=== PATIENT | female | born 1950 | race Caucasian/White ===

== ENCOUNTER 2022-08-08 12:49 | Outpatient (CLI) | payer MEDICARE, BC, SELFPAY ==
--- NOTE | 2022-08-08 13:00 | MR_ITS ---
[facility] [address] [facility] [address] Phone:?[phone] Fax:?[phone] Referring Physician Information: Tanmay Greene M.D. [address] [facility] [address] [address] Phone:?[phone] Fax:?[phone] Patient:Neeru Jean D.O.B:?1950 Sex:?Female Phone:?[phone] [facility] MRN:?[id number] Exam Date:?08/08/2022 ? EXAM: MR CERVICAL SPINE WITHOUT CONTRAST 1.5T CLINICAL INFORMATION: Neck and arm pain. CORRELATIVE IMAGES: Cervical MRI 07/17/2020. TECHNICAL INFORMATION: T1, T2 GRE, T2 FSE and STIR sagittal thin sections with T2 GRE and FSE axial sections at selected levels. Motion artifact on T2 GRE. CONTRAST:?None. SEDATION: None. INTERPRETATION:?Spinal Cord: No spinal cord signal abnormality. No Chiari malformation. Bony Structure and Alignment: Lordotic alignment of cervical spine. Osseous and paraspinous structures: Bone marrow signal is unremarkable. Paraspinal soft tissues are unremarkable. Vertebral artery flow voids are present. Facet Joints: Hypertrophic ankylosis left C4-5 facet joint. Marked facet degeneration right C2-3, left C3-4, right C5-6 and left C7-T1. Milder facet arthrosis other levels. Disc Degeneration/Operative changes: Upper thoracic spondylosis without central or foraminal stenosis. C7-T1, trace anterolisthesis without central or foraminal stenosis. C6-7, moderate to marked vertical narrowing with mild bulging, central stenosis, no cord impingement. Severe right and [id number] left chronic foraminal stenosis and C7 impingement. C5-6, trace retrolisthesis with approximately 3 mm AP left posterolateral to foraminal protrusion and uncinate spur, mild to moderate leftward central stenosis and left ventral cord contouring without compression. Severe left and moderate right chronic foraminal stenosis with left C6 impingement. C4-5 trace anterolisthesis with facet hypertrophy and no stenosis. C3-4, trace anterolisthesis and bulge without central or right foraminal compromise. Moderate to marked chronic left foraminal stenosis due to facet hypertrophy with C4 impingement. C3-4 disc morphology is normal. Central canal and foramina. No significant atlantoaxial or atlanto-occipital pathology. CONCLUSION: Cervical spondylosis with these findings: 1. Mild to moderate C5-6 central stenosis eccentric to the left with mild cord impingement. 2. Moderate C6-7 disc degeneration without cord impingement. 3. Chronic foraminal stenosis, notably right greater than left C6-7, left greater than right C5-6 and left C3-4 with nerve root impingement. 4. Multilevel facet degeneration with C4-5 facet ankylosis, no inflammatory facet arthropathy. Note: No substantial change from prior study. RSP Electronically signed on 08/11/2022 1:50:00 PM by Larry Mtz M.D.
== END 2022-08-08 12:50 | disposition home or self-care (01) ==
LOC: MRI 12:51
PROVIDERS: PCP Family Medicine; Visit Provider Specialist
DX: M54.2 Cervicalgia (principal); M48.02 Spinal stenosis, cervical region; M50.123 Cervical disc disorder at C6-C7 level with radiculopathy
CPT/HCPCS: 72141

== ENCOUNTER 2023-07-10 13:00 | Outpatient (CLI) | payer MEDICARE, BC, SELFPAY ==
--- NOTE | 2023-07-10 13:00 | CRLHL7_ITS ---
For Patients: As a result of the Century Cures Act, medical imaging exams and procedure reports are released immediately into your electronic medical record. You may view this report before your referring provider. If you have questions, please contact your health care provider. INDICATION: Cervical stenosis. COMPARISON: None. TECHNIQUE: Noncontrast CT cervical spine. FINDINGS: Normal vertebral body facet alignment. No fractures. No vertebral body loss of height. No spondylolisthesis. Compared to previous radiograph, stable mature postoperative changes of anterior discectomy and fusion C5-C7. Hardware appears well seated. Cervical spondylosis with multilevel disc degeneration facet arthropathy. Degenerative fusion across the left C4-5 facet joint. C1-2: No spinal canal narrowing. C1-2: No spinal canal narrowing. C2-3: No spinal canal or neural foraminal narrowing. C3-4: No narrowing of spinal canal. Uncovertebral facet joint hypertrophy results in moderate severe left and mild right neural foraminal narrowing. Potential impingement of the left C4 nerve root. C4-5: Disc generation. Broad-based disc osteophyte complex. Mild narrowing of the left neural foramen. No narrowing of the right neural foramen. C5-6: Postoperative changes. Uncovertebral joint hypertrophy results in moderate narrowing of the left neural foramen. No narrowing of the right neural foramen. Potential impingement of the left C6 nerve root. C6-7: Disc degeneration. Broad-based disc osteophyte complex. Moderate narrowing of bilateral foramina. C7-T1: No spinal canal neural foraminal narrowing. Lung apices are clear. IMPRESSION: 1. Normal alignment. No fractures. 2. Stable postoperative changes C5-7. Hardware appears well-seated. 3. Cervical spondylosis. 4. At C3-4, moderate severe left and mild right neural foraminal narrowing. Potential impingement of the left C4 nerve root. 5. At C5-6, moderate narrowing of the left neuroforamen. Potential impingement left C6 nerve root 6. At C6-7, moderate narrowing of the bilateral neural foramina Please note that all CT scans at this facility use dose modulation, iterative reconstruction, and/or weight-based dosing when appropriate to reduce radiation dose to as low as reasonably achievable. Dictated by Alex Nichols MD @ 07/11/2023 10:39:34 PM (Electronically Signed)
== END 2023-07-10 13:01 | disposition home or self-care (01) ==
LOC: CT 13:01
PROVIDERS: PCP Family Medicine; Visit Provider Specialist
DX: M48.02 Spinal stenosis, cervical region (principal); M47.892 Other spondylosis, cervical region; M50.21 Other cervical disc displacement, high cervical region; Z98.1 Arthrodesis status
CPT/HCPCS: 72125

== ENCOUNTER 2025-01-16 12:45 | Outpatient (CLI) | payer MEDICARE, BC, SELFPAY ==
--- NOTE | 2025-01-16 13:00 | MR_ITS ---
[facility] [address] [facility] [address] Phone:?[phone] Fax:?[phone] Referring Physician Information: Denny Sommer M.D. [address] [facility] [address] Phone:?[phone] Fax:?[phone] Patient:Darin Jean D.O.B:?1950 Sex:?Female Phone:?[phone] [facility] MRN:?[id number] Exam Date:?01/16/2025 EXAM: MR LUMBAR SPINE WITHOUT CONTRAST CLINICAL INFORMATION: 74-year-old female with lumbar radiculopathy. COMPARISON: Lumbar spine radiographs dated 01/03/2025. TECHNICAL INFORMATION: Sagittal T2, sagittal T1, sagittal STIR, coronal T1, axial T2, and axial T1-weighted MR images of the lumbar spine on a 1.5 Makenna magnet. CONTRAST: None. SEDATION: None. INTERPRETATION: Hyperlordosis of 5 nonrib-bearing lumbar vertebral bodies with mild thoracolumbar junction dextrocurvature. Scattered Modic type I endplate changes greatest ventrally at T11-12. No spondylolysis, vertebral collapse, acute fracture, or destructive osseous lesion. 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 Normal pre and paravertebral soft tissues. Conus medullaris positioned at upper L2, with normal configuration of the terminal nerve roots. L5-S1: Moderate disc degeneration, mild dorsal annular bulge, moderate bilateral facet degeneration, and no stenosis or impingement. L4-5: Moderate disc degeneration, 4 mm spondylolisthesis, mild diffuse annular bulge, advanced bilateral facet degeneration with mild inflammatory subchondral edema on the left, mild central/right greater than left subarticular stenosis, and mild to moderate right/mild left foraminal stenosis with exiting right L4 root encroachment. L3-4: Moderate disc degeneration, 4 mm spondylolisthesis, mild diffuse annular bulge, left paracentral annular fissure/3-4 mm AP protrusion, moderate bilateral facet degeneration, 4 mm ligamentum flavum thickening, moderate to severe AP central stenosis, and moderate to severe left greater than right subarticular stenosis with descending L4 root impingement. Mild to moderate left foraminal stenosis with exiting left L3 root encroachment. L2-3: Mild disc degeneration, normal dorsal disc contours, sagittally oriented/mildly degenerated left facet, and no stenosis or impingement. L1-2 and T12-L1: Normal dorsal disc contours and normal facets. T11-12: Moderate disc degeneration and 2 mm AP broad-based dorsal protrusion without central stenosis. Normal facets and patent foramina. No change from 01/03/2025 allowing for differences in modality. CONCLUSION: Multilevel lumbar degenerative changes with specifics as follows: 1. L3-4 moderate to severe central and left greater than right subarticular stenosis with descending L4 root impingement. 2. L4-5 mild central and right greater than left subarticular stenosis. 3. Chronic foraminal stenosis which is mild to moderate on the left at L3-4 and on the right at L4-5, with encroachment of the exiting roots. 4. Facet degeneration which is advanced bilaterally at L4-5 with superimposed mild inflammatory changes on the left. Moderate bilaterally at L3-4 and L5-S1. 5. No spondylolysis, vertebral collapse, acute fracture, or destructive osseous lesion. 6. Multilevel Modic type I endplate changes greatest ventrally at T11-T12, and multilevel Baastrup's phenomenon are additional potential sources of axial/mechanical back pain. PDB Electronically signed on 01/19/2025 1:03:00 AM by Alex Stewart M.D.
== END 2025-01-16 12:46 | disposition home or self-care (01) ==
LOC: MRI 12:47
PROVIDERS: PCP Family Medicine; Visit Provider Orthopaedic Surgery Sports Medicine
DX: M54.16 Radiculopathy, lumbar region (principal); M48.061 Spinal stenosis, lumbar region without neurogenic claudication; M51.362 Other intervertebral disc degeneration, lumbar region with discogenic back pain and lower extremity pain
CPT/HCPCS: 72148

== ENCOUNTER 2025-02-16 08:30 | Outpatient (RCR) | payer MEDICARE, BC, SELFPAY | END 2025-06-16 23:59 | disposition home or self-care (01) | PROVIDERS: PCP Family Medicine; Visit Provider Family Medicine | DX: H81.11 Benign paroxysmal vertigo, right ear (principal); M54.2 Cervicalgia; Z51.89 Encounter for other specified aftercare | CPT/HCPCS: 97110; 97112; 97140; 97161 ==